=== PATIENT | female | born 1995 | race African-American/Black ===

== ENCOUNTER 2017-06-25 17:35 | Emergency (ER) | payer BC, SELFPAY ==
[2017-06-25] MEDS ORDERED: Dexamethasone 4 mg/ml Vial ONE (18:08)
== END 2017-06-25 18:31 | disposition home or self-care (01) ==
LOC: ERS 17:35
DX: H65.91 Unspecified nonsuppurative otitis media, right ear (principal); F17.210 Nicotine dependence, cigarettes, uncomplicated
CPT/HCPCS: 87081; 87430; 99283; J1100